=== PATIENT | male | born 1970 | race Caucasian/White ===

== ENCOUNTER 2016-09-23 10:23 | Inpatient (IN) | payer OTHER, BC ==
[~2016-09-23] VITALS: Ht 170.2 cm; Wt 128.4 kg
[~2016-09-23 10:23] MED LIST: CLINDAMYCIN HC300 MG PO; CYMBALTA20 M1 PO; GABAPENTIN100 M2 PO; GLIPIZIDE2.5 M1 PO; LEVAQUIN500 MG PO; METFORMIN HCL500 MG; METFORMIN850 M1 PO; NOR10T; NORCO1 TA2 PO
[2016-09-23 11:40] LABS: BASOPHIL % 0.1 % (0-2); PLATELET COUNT 373 x10^3mcL (130-400); RED CELL DISTRIBUTION WIDTH 12.2 % (11.5-14.5)
[2016-09-23 11:51] LABS: CARBON DIOXIDE 25.8 mmol/L (21-32); CHLORIDE SERUM 98 mmol/L (98-107); CREATININE SERUM 0.8 mg/dL (0.7-1.3); GFR1 > 60 mL/min; GLUCOSE SERUM 314 mg/dL (74-106); POTASSIUM SERUM 4.5 mmol/L (3.5-5.1); SODIUM SERUM 135 mmol/L (136-145)
[2016-09-23 11:52] LABS: CALCIUM 8.8 mg/dL (8.5-10.1)
[2016-09-23 12:01] LABS: microscopic required? NO
[2016-09-23 12:01] LABS: TOTAL PROTEIN, SERUM 7.5 g/dL (6.4-8.2)
[2016-09-23 12:02] LABS: ALKALINE PHOSPHATASE 117 U/L (46-116); ALT/SGPT 16 U/L (16-63); AST/SGOT 18 U/L (15-37); BILIRUBIN TOTAL 0.62 mg/dL (0.20-1.00)
[2016-09-23 12:27] LABS: urine erythrocyte NEGATIVE (NEGATIVE)
[2016-09-23 13:13] LABS: CHOLESTEROL/HDL RATIO 3.1; MAGNESIUM 1.7 mg/dL (1.8-2.4)
[2016-09-23 13:14] LABS: PHOSPHOROUS 3.3 mg/dL (2.5-4.9); T3 TOTAL 1.23 ng/mL
[2016-09-23 13:59] LABS: AMPHETAMINE QUAL UR NONE DETECTED (NEG <=1000)
[2016-09-23 14:07] VITALS: BP 127/82
[2016-09-23 15:00] LABS: FREE T4 1.16 ng/dL (0.76-1.46); FREE THYROXINE INDEX 3.1 ug/dL (1.4-4.5); T4(THYROXINE) 8.3 ug/dL (4.7-13.3)
[2016-09-23 17:29] VITALS: BP 127/79
[2016-09-23 20:59] VITALS: BP 134/68
[2016-09-24 06:07] VITALS: BP 123/70
[2016-09-24 06:47] LABS: BASOPHIL % 0.3 % (0-2); PLATELET COUNT 293 x10^3mcL (130-400); RED CELL DISTRIBUTION WIDTH 12.3 % (11.5-14.5)
[2016-09-24 07:00] LABS: CARBON DIOXIDE 28.3 mmol/L (21-32); CHLORIDE SERUM 101 mmol/L (98-107); CREATININE SERUM 0.7 mg/dL (0.7-1.3); GFR1 > 60 mL/min; GLUCOSE SERUM 235 mg/dL (74-106); MAGNESIUM 1.6 mg/dL (1.8-2.4); PHOSPHOROUS 3.2 mg/dL (2.5-4.9); POTASSIUM SERUM 4.4 mmol/L (3.5-5.1); SODIUM SERUM 134 mmol/L (136-145)
[2016-09-24 10:15] VITALS: BP 119/73
[2016-09-24 13:59] VITALS: BP 108/64
[2016-09-24 17:00] VITALS: BP 127/78
[2016-09-24 21:20] VITALS: BP 113/65
[2016-09-25 05:26] VITALS: BP 134/76
[2016-09-25 06:10] LABS: BASOPHIL % 0.4 % (0-2); PLATELET COUNT 295 x10^3mcL (130-400); RED CELL DISTRIBUTION WIDTH 11.9 % (11.5-14.5)
[2016-09-25 06:29] LABS: CARBON DIOXIDE 28.9 mmol/L (21-32); CHLORIDE SERUM 103 mmol/L (98-107); CREATININE SERUM 0.7 mg/dL (0.7-1.3); GFR1 > 60 mL/min; GLUCOSE SERUM 165 mg/dL (74-106); MAGNESIUM 1.9 mg/dL (1.8-2.4); PHOSPHOROUS 3.2 mg/dL (2.5-4.9); POTASSIUM SERUM 4.5 mmol/L (3.5-5.1); SODIUM SERUM 137 mmol/L (136-145)
[2016-09-25 10:35] VITALS: BP 144/85
[2016-09-25 16:59] VITALS: BP 128/72
[2016-09-25 19:55] VITALS: BP 121/65
[2016-09-26 06:05] VITALS: BP 137/79
[2016-09-26 06:15] LABS: BASOPHIL % 0.4 % (0-2); PLATELET COUNT 323 x10^3mcL (130-400); RED CELL DISTRIBUTION WIDTH 11.9 % (11.5-14.5)
[2016-09-26 06:41] LABS: CALCIUM 8.1 mg/dL (8.5-10.1); CARBON DIOXIDE 27.1 mmol/L (21-32); CHLORIDE SERUM 102 mmol/L (98-107); CREATININE SERUM 0.6 mg/dL (0.7-1.3); GFR1 > 60 mL/min; GLUCOSE SERUM 164 mg/dL (74-106); MAGNESIUM 1.8 mg/dL (1.8-2.4); PHOSPHOROUS 3.1 mg/dL (2.5-4.9); POTASSIUM SERUM 4.4 mmol/L (3.5-5.1); SODIUM SERUM 137 mmol/L (136-145)
[2016-09-26 09:38] VITALS: BP 139/85
[2016-09-26 18:06] VITALS: BP 147/87
[2016-09-26 19:20] VITALS: BP 144/81
[2016-09-26 21:53] VITALS: BP 143/83
[2016-09-27 06:27] LABS: BASOPHIL % 0.2 % (0-2); PLATELET COUNT 334 x10^3mcL (130-400); RED CELL DISTRIBUTION WIDTH 11.9 % (11.5-14.5)
[2016-09-27 06:44] LABS: CALCIUM 8.2 mg/dL (8.5-10.1); CARBON DIOXIDE 28.3 mmol/L (21-32); CHLORIDE SERUM 103 mmol/L (98-107); CREATININE SERUM 0.6 mg/dL (0.7-1.3); GFR1 > 60 mL/min; GLUCOSE SERUM 160 mg/dL (74-106); MAGNESIUM 1.6 mg/dL (1.8-2.4); PHOSPHOROUS 3.6 mg/dL (2.5-4.9); POTASSIUM SERUM 4.5 mmol/L (3.5-5.1); SODIUM SERUM 135 mmol/L (136-145)
[2016-09-27 09:24] VITALS: BP 134/79
[2016-09-27 14:09] VITALS: BP 134/79
[2016-09-27] MEDS ORDERED: CLEOCIN HCL300 MG PO (14:17)
[2016-09-27] MEDS ORDERED: NORCO1 TA2 PO (15:42)
== END 2016-09-27 15:50 | disposition home or self-care (01) | DRG 622 ==
LOC: ED 10:23 → DU 12:14 → MU 12:14 → DU 13:28 → MU 09-24 14:50
PROVIDERS: Emergency Medicine; ADMIT Family Medicine
PROC: 0JBR0ZZ Excision of Left Foot Subcutaneous Tissue and Fascia, Open Approach (ICD-10-PCS; principal; 2016-09-23)
PROC: 0QBP0ZZ Excision of Left Metatarsal, Open Approach (ICD-10-PCS; 2016-09-25)
DX: E11.621 Type 2 diabetes mellitus with foot ulcer (principal); E43 Unspecified severe protein-calorie malnutrition; E87.1 Hypo-osmolality and hyponatremia; Z68.42 Body mass index [BMI] 45.0-49.9, adult; D68.69 Other thrombophilia; E11.65 Type 2 diabetes mellitus with hyperglycemia; E11.51 Type 2 diabetes mellitus with diabetic peripheral angiopathy without gangrene; L97.523 Non-pressure chronic ulcer of other part of left foot with necrosis of muscle; E83.42 Hypomagnesemia; E11.42 Type 2 diabetes mellitus with diabetic polyneuropathy; Z53.29 Procedure and treatment not carried out because of patient's decision for other reasons; I83.90 Asymptomatic varicose veins of unspecified lower extremity; E66.01 Morbid (severe) obesity due to excess calories; I10 Essential (primary) hypertension; Z79.82 Long term (current) use of aspirin; Z79.84 Long term (current) use of oral hypoglycemic drugs; Z83.3 Family history of diabetes mellitus; Z82.49 Family history of ischemic heart disease and other diseases of the circulatory system; Z84.89 Family history of other specified conditions; Z79.4 Long term (current) use of insulin; Z79.899 Other long term (current) drug therapy
CPT/HCPCS: 83880; 84439; J1170; J1815; J2001; J2270; J2405; J2543; J3475; J3490; J7030; Q0092

== ENCOUNTER 2020-01-08 12:20 | Inpatient (IN) | payer OTHER ==
[~2020-01-08] VITALS: Ht 170.2 cm; Wt 108.9 kg
[~2020-01-08 12:20] MED LIST changes: +CLEOCIN HCL300 MG PO; -GLIPIZIDE2.5 M1 PO
[2020-01-08 12:31] VITALS: Ht 170.2 cm; Wt 108.9 kg
[2020-01-08 13:15] LABS: BASOPHIL % 0.4 % (0-2); PLATELET COUNT 458 x10^3mcL (130-400); RED CELL DISTRIBUTION WIDTH 11.7 % (11.5-14.5)
[2020-01-08 13:34] LABS: CALCIUM 8.8 mg/dL (8.5-10.1); CARBON DIOXIDE 23.6 mmol/L (21-32); CHLORIDE SERUM 98 mmol/L (98-107); CREATININE SERUM 1.1 mg/dL (0.7-1.3); GFR1 > 60 mL/min; GLUCOSE SERUM 384 mg/dL (74-106); POTASSIUM SERUM 4.6 mmol/L (3.5-5.1); SODIUM SERUM 131 mmol/L (136-145)
[2020-01-08 13:39] LABS: ALKALINE PHOSPHATASE 121 U/L (46-116); ALT/SGPT 14 U/L (16-63); AST/SGOT 17 U/L (15-37); BILIRUBIN TOTAL 0.45 mg/dL (0.20-1.00)
[2020-01-08 13:40] LABS: ALBUMIN 2.7 g/dL (3.4-5.0)
[2020-01-08 15:31] LABS: FREE T4 1.19 ng/dL (0.76-1.46); FREE THYROXINE INDEX 2.5 ug/dL (1.4-4.5); T3 TOTAL 1.29 ng/mL; T4(THYROXINE) 7.6 ug/dL (4.7-13.3)
[2020-01-08] MEDS ORDERED: MIRALAX17 GM PO (15:35)
[2020-01-08] MEDS ORDERED: BACLOFEN20 MG PO (15:36)
[2020-01-08] MEDS ORDERED: ESCITALOPRAM OX10 MG PO (15:37)
[2020-01-08] MEDS ORDERED: D-20001 TAB PO (15:43)
[2020-01-08 19:26] VITALS: BP 138/87
[2020-01-08 21:32] VITALS: BP 126/78
[2020-01-09 06:02] VITALS: BP 136/84
[2020-01-09 07:42] VITALS: BP 136/84
[2020-01-09 07:57] VITALS: BP 124/84
[2020-01-09 07:59] LABS: BASOPHIL % 0.4 % (0-2); PLATELET COUNT 371 x10^3mcL (130-400); RED CELL DISTRIBUTION WIDTH 12.3 % (11.5-14.5)
[2020-01-09 08:33] LABS: CALCIUM 8.4 mg/dL (8.5-10.1); CARBON DIOXIDE 27.4 mmol/L (21-32); CHLORIDE SERUM 102 mmol/L (98-107); CREATININE SERUM 0.9 mg/dL (0.7-1.3); GFR1 > 60 mL/min; GLUCOSE SERUM 244 mg/dL (74-106); MAGNESIUM 1.9 mg/dL (1.8-2.4); PHOSPHOROUS 3.6 mg/dL (2.5-4.9); POTASSIUM SERUM 4.5 mmol/L (3.5-5.1); SODIUM SERUM 135 mmol/L (136-145)
[2020-01-09 17:04] VITALS: BP 140/78
[2020-01-09 20:31] VITALS: BP 129/83
[2020-01-10 05:21] VITALS: BP 142/84
[2020-01-10 07:45] LABS: BASOPHIL % 0.6 % (0-2); PLATELET COUNT 339 x10^3mcL (130-400); RED CELL DISTRIBUTION WIDTH 12.3 % (11.5-14.5)
[2020-01-10 08:46] LABS: CALCIUM 8.1 mg/dL (8.5-10.1); CARBON DIOXIDE 23.5 mmol/L (21-32); PHOSPHOROUS 4.7 mg/dL (2.5-4.9); POTASSIUM SERUM 4.9 mmol/L (3.5-5.1)
[2020-01-10 08:56] VITALS: BP 140/74
[2020-01-10 12:33] VITALS: BP 131/69
[2020-01-10 12:36] VITALS: BP 154/92
[2020-01-10 17:52] VITALS: BP 159/92
[2020-01-10 18:43] LABS: CARBON DIOXIDE 25.2 mmol/L (21-32); POTASSIUM SERUM 4.1 mmol/L (3.5-5.1)
[2020-01-10 20:30] VITALS: BP 134/86
[2020-01-11 05:13] VITALS: BP 144/87
[2020-01-11 07:10] LABS: BASOPHIL % 0.3 % (0-2); PLATELET COUNT 343 x10^3mcL (130-400)
[2020-01-11 07:33] LABS: CALCIUM 8.1 mg/dL (8.5-10.1); CARBON DIOXIDE 26.2 mmol/L (21-32); CREATININE SERUM 2.2 mg/dL (0.7-1.3); MAGNESIUM 2.1 mg/dL (1.8-2.4); PHOSPHOROUS 3.6 mg/dL (2.5-4.9); POTASSIUM SERUM 4.7 mmol/L (3.5-5.1)
[2020-01-11 08:32] VITALS: BP 156/85
[2020-01-11 13:02] VITALS: BP 167/102
[2020-01-11 16:28] VITALS: BP 151/79
[2020-01-11 20:43] VITALS: BP 163/97
[2020-01-12 01:03] LABS: UA SPECIFIC GRAVITY 1.025 (1.005-1.035); microscopic required? YES; urine erythrocyte TRACE (NEGATIVE)
[2020-01-12 07:20] LABS: CALCIUM 7.9 mg/dL (8.5-10.1); CARBON DIOXIDE 23.9 mmol/L (21-32); CREATININE SERUM 1.9 mg/dL (0.7-1.3); MAGNESIUM 2.1 mg/dL (1.8-2.4); PHOSPHOROUS 3.4 mg/dL (2.5-4.9); POTASSIUM SERUM 4.2 mmol/L (3.5-5.1)
[2020-01-12 07:37] LABS: BASOPHIL % 0.3 % (0-2); PLATELET COUNT 333 x10^3mcL (130-400)
[2020-01-12 08:30] VITALS: BP 160/91
[2020-01-12 13:04] VITALS: BP 161/91
[2020-01-12 16:05] VITALS: BP 161/95
[2020-01-12 17:28] VITALS: BP 148/95
[2020-01-12 19:41] VITALS: BP 160/91
[2020-01-12 21:36] VITALS: BP 160/91
[2020-01-13 05:08] VITALS: BP 144/88
[2020-01-13 05:17] VITALS: BP 90/50
[2020-01-13 07:55] LABS: CALCIUM 8.1 mg/dL (8.5-10.1); CARBON DIOXIDE 24.6 mmol/L (21-32); CREATININE SERUM 1.9 mg/dL (0.7-1.3); POTASSIUM SERUM 4.7 mmol/L (3.5-5.1)
[2020-01-13 08:01] LABS: MAGNESIUM 2.3 mg/dL (1.8-2.4); PHOSPHOROUS 4.4 mg/dL (2.5-4.9)
[2020-01-13 08:34] VITALS: BP 150/87
[2020-01-13 08:50] LABS: BASOPHIL % 0.8 % (0-2); PLATELET COUNT 362 x10^3mcL (130-400)
[2020-01-13] MEDS ORDERED: AUGMENTIN 875-1 EACH PO (09:22)
[2020-01-13] MEDS ORDERED: APLICARE ANTIS118 M3 TOP (09:22)
[2020-01-13] MEDS ORDERED: METFORMIN850 M1 PO (09:23)
[2020-01-13] MEDS ORDERED: BACO TOP (09:23)
[2020-01-13] MEDS ORDERED: TRA100 PO (09:24)
[2020-01-13] MEDS ORDERED: LANTI SQ (09:24)
[2020-01-13] MEDS ORDERED: INSULIN SYRING1 EA29 SQ (09:25)
[2020-01-13] MEDS ORDERED: ULT50 PO (09:25)
[2020-01-13 12:01] VITALS: BP 150/87
[2020-01-13 12:19] VITALS: BP 155/94
[2020-01-13] MEDS ORDERED: GLIPIZIDE2.5 M1 PO (12:20)
== END 2020-01-13 15:49 | disposition home health service (06) | DRG 314 ==
LOC: ED 12:20 → DU 14:36 → MU 14:36 → DU 18:11
PROVIDERS: Emergency Medicine; Family Medicine; Internal Medicine Nephrology; Podiatrist Foot & Ankle Surgery; ADMIT Internal Medicine; ATTEND Internal Medicine
PROC: 0PT Upper Bones, Resection (ICD-10-PCS; 2020-01-09)
PROC: 0QTP0ZZ Resection of Left Metatarsal, Open Approach (ICD-10-PCS; principal; 2020-01-09 08:30)
DX: E11.621 Type 2 diabetes mellitus with foot ulcer (principal); M86.8X7 Other osteomyelitis, ankle and foot; E11.40 Type 2 diabetes mellitus with diabetic neuropathy, unspecified; E11.69 Type 2 diabetes mellitus with other specified complication; Z20.828 Contact with and (suspected) exposure to other viral communicable diseases; I10 Essential (primary) hypertension; E11.65 Type 2 diabetes mellitus with hyperglycemia; F32.9 Major depressive disorder, single episode, unspecified; Z66 Do not resuscitate; Z79.4 Long term (current) use of insulin; Z79.84 Long term (current) use of oral hypoglycemic drugs; Z79.899 Other long term (current) drug therapy; Z79.01 Long term (current) use of anticoagulants; Z83.3 Family history of diabetes mellitus; Z82.49 Family history of ischemic heart disease and other diseases of the circulatory system
CPT/HCPCS: 82962; 84439; 97116-GP; 97530-GP; G0378; J1815; J1885; J2175; J2270; J2405; J2543; J3010; J3370; J3490; J7030; J7050; J7060; Q0092; U0003-CS